=== PATIENT | male | born 1960 | race Caucasian/White ===

== ENCOUNTER 2017-03-19 11:59 | Emergency (ER) | payer OTHER ==
[~2017-03-19] VITALS: Ht 177.8 cm; Wt 91.0 kg
[~2017-03-19 11:59] MED LIST: ACYC-1 PO; ASPI81 PO; LISI10TA PO; PRED20 PO; PREV30CA36 PO
[2017-03-19 12:02] VITALS: BP 113/82; PULSE 96; RESP 16; TEMP 97.5; O2SAT 98
[2017-03-19] MEDS ORDERED: PREV30CA11 PO (12:07)
[2017-03-19] MEDS ORDERED: LISI10TA PO (12:07)
[2017-03-19] MEDS ORDERED: ASPI81CH7 CHEW (12:07)
[2017-03-19] MEDS ORDERED: ALLO100T PO (12:07)
[2017-03-19 12:18] LABS: BLOOD, URINE NEG (NEG); GLUCOSE,URINE NEG (NEG); KETONE, URINE NEG (NEG); NITRITE,URINE NEG (NEG); PH, URINE 5.5 (5.0-8.5)
[2017-03-19 12:25] LABS: METHOD OF COLLECTION CLEAN CATCH; URINE COLOR YELLOW (YELLW/STRAW)
[2017-03-19 12:26] LABS: COMMENT (UR) CULTURE INDICATED; COMMENT2 (UR) MUCOUS PRESENT; CULTURE IF INDICATED CULTURE INDICATED; SQUAMOUS EPITHELIAL CELL URINE 0-5 /hpf (0-5); WBC, URINE 0-2 /hpf (0-5)
--- NOTE | 2017-03-19 13:12 | PD ---
HPI Chief Complaint: Abdominal Pain Time Seen by Provider: 12:32 Travel History International Travel<30 days: No Contact w/Intl Traveler<30days: No Traveled to known affect area: No History of Present Illness HPI 56 year old male presenting with acute severe abdominal pain about 2 hours ago. He had watery diarrhea for the past 2 days. The patient took Imodium last night and has not had a BM since. Associated symptoms include nausea and subjective fever. He denies hematochezia, melena, vomiting, dysuria, and hematuria. He had diverticulitis 3 years ago and a laparoscopic inguinal hernia repair. No recent travel and no family with similar symptoms. Patient states now his abdominal pain is nearly completely resolved. Was offered pain medicine and declined. States he never had this type of thing happen to him before. PFSH Past Medical History Hx Anticoagulant Therapy: Yes (BABY ASA DAILY) Anemia: No Blood Disorders: No Cancer: No Cardiovascular Problems: Yes (HTN) High Cholesterol: Yes Diabetes: No (PRE) Diminished Hearing: No Diverticulitis: Yes GERD: Yes Glaucoma: No Gout: Yes Genitourinary: No Headaches: Yes Hepatitis: No Hiatal Hernia: No Hypertension: Yes Immune Disorder: No Inguinal Hernia: Yes (LEFT INGUINAL HERNIA) Medical other: Yes (reflux pneumonia several years ago) Psychiatric: No Respiratory: No Immunizations Current: Yes Seizures: Yes (ASSOCIATED WITH HEADACHES- LAST SEIZURE 2002) Thyroid Disease: No Tetanus Vaccination: Unknown Past Surgical History Abdominal Surgery: Yes (HERNIA REPAIR 04/2009) Pacemaker: No Other Surgery: Yes (HAND SURG X3 FOR "WEBBED FINGERS") Social History Alcohol Use: Yes (RARE) Tobacco Use: No Substance Use: No Allergies-Medications (Allergen,Severity, Reaction): Coded Allergies: No Known Allergies (Verified , 03/19/17) Reported Meds & Prescriptions Reported Meds & Active Scripts Active Bentyl (Dicyclomine HCl) 10 Mg Cap 10 Mg PO TID PRN Reported Lisinopril-Hctz 10-12.5 Mg Tab 1 Tab PO DAILY Prevacid (Lansoprazole) 30 Mg Capdr 30 Mg PO DAILY Allopurinol 100 Mg Tab 100 Mg PO DAILY Aspirin Children's (Aspirin) 81 Mg Chew 81 Mg CHEW DAILY Review of Systems Except as stated in HPI: all other systems reviewed are Neg General / Constitutional: Positive: Chills Cardiovascular: No: Chest Pain or Discomfort Respiratory: No: Cough, Shortness of Breath Gastrointestinal: Positive: Nausea, Diarrhea, Abdominal Pain, No: Vomiting, Hematemesis, Hematochezia, Constipation Genitourinary: No: Dysuria, Hematuria Physical Exam Narrative GENERAL: Well developed, well nourished SKIN: Warm and dry. HEAD: Atraumatic. Normocephalic. EYES: Pupils equal and round. No scleral icterus. No injection or drainage. ENT: No nasal bleeding or discharge. Mucous membranes pink and moist. NECK: Trachea midline. No JVD. CARDIOVASCULAR: Regular rate and rhythm. RESPIRATORY: No accessory muscle use. Clear to auscultation. Breath sounds equal bilaterally. GASTROINTESTINAL: Voluntary guarding only, abdomen is soft though., Minimally tender to palpation in epigastric and periumbilical regions. Nondistended. Hepatic and splenic margins not palpable. MUSCULOSKELETAL: Extremities without clubbing, cyanosis, or edema. No obvious deformities. NEUROLOGICAL: Awake and alert. No obvious cranial nerve deficits. Motor grossly within normal limits. Five out of 5 muscle strength in the arms and legs. Normal speech. PSYCHIATRIC: Appropriate mood and affect; insight and judgment normal. Data Data Last Documented VS Vital Signs Date Time Temp Pulse Resp B/P Pulse Ox O2 Delivery O2 Flow Rate FiO2 03/19/17 15:11 76 16 109/72 97 Room Air 03/19/17 12:02 97.5 Orders Urinalysis - C+S If Indicated (03/19/17 12:10) Urine Culture (03/19/17 12:14) Complete Blood Count With Diff (03/19/17 13:09) Comprehensive Metabolic Panel (03/19/17 13:09) Lactic Acid (03/19/17 13:09) Prothrombin Time / Inr (Pt) (03/19/17 13:09) Act Partial Throm Time (Ptt) (03/19/17 13:09) Iv Access Insert/Monitor (03/19/17 13:09) Ecg Monitoring (03/19/17 13:09) Oximetry (03/19/17 13:09) Sodium Chloride 0.9% Flush (Ns Flush) (03/19/17 13:15) Ct Abd/Pel W Iv Contrast(Rout) (03/19/17 ) Iohexol 350 Inj (Omnipaque 350 Inj) (7/23/17 14:30) Labs Laboratory Tests Test 03/19/17 03/19/17 12:14 13:15 Urine Collection Type CLEAN CATCH Urine Color YELLOW Urine Turbidity SLIGHT Urine pH 5.5 Urine Specific Kirkman 1.023 Urine Protein NEG mg/dL Urine Glucose (UA) NEG mg/dL Urine Ketones NEG mg/dL Urine Occult Blood NEG Urine Nitrite NEG Urine Bilirubin NEG Urine Leukocyte Esterase NEG Urine WBC 0-2 /hpf Urine Squamous Epithelial 0-5 /hpf Cells Urine Amorphous Sediment FEW Microscopic Urinalysis Comment CULTURE INDICATED Urine Collection Time 1214 White Blood Count 9.0 TH/MM3 Red Blood Count 5.45 MIL/MM3 Hemoglobin 15.3 GM/DL Hematocrit 45.9 % Mean Corpuscular Volume 84.1 FL Mean Corpuscular Hemoglobin 28.0 PG Mean Corpuscular Hemoglobin 33.3 % Concent Red Cell Distribution Width 12.4 % Platelet Count 225 TH/MM3 Mean Platelet Volume 9.4 FL Neutrophils (%) (Auto) 70.2 % Lymphocytes (%) (Auto) 18.6 % Monocytes (%) (Auto) 9.1 % Eosinophils (%) (Auto) 1.0 % Basophils (%) (Auto) 1.1 % Neutrophils # (Auto) 6.3 TH/MM3 Lymphocytes # (Auto) 1.7 TH/MM3 Monocytes # (Auto) 0.8 TH/MM3 Eosinophils # (Auto) 0.1 TH/MM3 Basophils # (Auto) 0.1 TH/MM3 CBC Comment DIFF FINAL Differential Comment Prothrombin Time 10.6 SEC Prothromb Time International 1.0 RATIO Ratio Activated Partial 25.4 SEC Thromboplast Time Sodium Level 140 MEQ/L Potassium Level 3.4 MEQ/L Chloride Level 104 MEQ/L Carbon Dioxide Level 25.9 MEQ/L Anion Gap 10 MEQ/L Blood Urea Nitrogen 12 MG/DL Creatinine 1.50 MG/DL Estimat Glomerular Filtration 48 ML/MIN Rate Random Glucose 97 MG/DL Lactic Acid Level 1.3 mmol/L Calcium Level 8.7 MG/DL Total Bilirubin 0.5 MG/DL Aspartate Amino Transf 18 U/L (AST/SGOT) Alanine Aminotransferase 24 U/L (ALT/SGPT) Alkaline Phosphatase 73 U/L Total Protein 7.6 GM/DL Albumin 3.6 GM/DL [facility] Medical Decision Making Medical Screen Exam Complete: Yes Emergency Medical Condition: Yes Differential Diagnosis Intussusception, volvulus, SBO, gastritis, gastroenteritis, pancreatitis, cholecystitis, Narrative Course Patient roomed in emergency department, states his pain was the most severe pain he was ever felt in his life. He seems fairly stoic and I think he is holding back at this time. His labs are reassuring (he does have an elevated creatinine to 1.5 which seems to be about his baseline) but will pursue a CAT scan of his abdomen. Last 24 hours Impressions Abdomen/Pelvis CT 03/19/17 0000 Signed Impressions: Service Date/Time: Sunday, March 19, 2017 14:17 - CONCLUSION: 1. Diverticulosis with probable spasm of the sigmoid colon and underlying mass is difficult to exclude. 2. The liver is fatty with numerous simple cysts within it and there are also simple cysts in the left kidney. 3. Benign-appearing cystic lesion in the inferior portion of the spleen may be a pseudocyst. The patient's older exam from 2009 is archived and not available for direct comparison. Jennifer Deluca MD Results were discussed with Dr. Deluca particularly the redevelop probable spasm of the sigmoid colon. He states this is common finding but excludes complete examination of the sigmoid colon on CAT scan. Discuss results with the patient including the cystic lesions and recommend follow-up with his primary care physician. At this time he is feeling well and still declines any pain medicine. Abdomen is completely benign at this time. Discussed symptomatic management home and returned ED criteria. Diagnosis Primary Impression: Abdominal cramping Patient Instructions: Gastroenteritis (DC), General Instructions Additional Instructions: Drink plenty of fluids, avoid immodium to let diarrhea run it's course. Stay bland on your diet. If you run fevers, pain gets worse, return to the ER. Med/Other Pt SpecificInfo: Prescription(s) given Scripts Dicyclomine (Bentyl)10 Mg Cap10 Mg PO TID PRN (ABDOMINAL CRAMPING) #20 CAP Ref 0 Prov:Fede Coker MD 03/19/17 Disposition: 01 DISCHARGE HOME Condition: Stable Fede Coker MD Mar 19, 2017 13:11
[2017-03-19] MEDS ORDERED: SODIUM CHLORIDE 0.9% FLUSH 10 ML FLUSH IV FLUSH PRN (13:15)
[2017-03-19 13:21] VITALS: O2SAT 97
[2017-03-19 13:28] LABS: AUTOMATED NEUTROPHIL # 6.3 TH/MM3 (1.8-7.7); BASOPHIL # 0.1 TH/MM3 (0-0.2); BASOPHIL % 1.1 % (0.0-2.0); EOSINOPHIL # 0.1 TH/MM3 (0-0.4); HEMATOCRIT 45.9 % (39.0-51.0); HEMO FLAGS DIFF FINAL; LYMPH % 18.6 % (9.0-44.0); LYMPHOCYTE # 1.7 TH/MM3 (1.0-4.8); MEAN CELL VOLUME 84.1 FL (80.0-100.0); MEAN CORPUSCULAR HGB CONC 33.3 % (32.0-36.0); MONO % 9.1 % (0.0-8.0); NEUT % 70.2 % (16.0-70.0); PLATELET COUNT 225 TH/MM3 (150-450); RED BLOOD COUNT 5.45 MIL/MM3 (4.50-5.90); RED CELL DISTRIBUTION WIDTH 12.4 % (11.6-17.2)
[2017-03-19 13:37] LABS: CHLORIDE 104 MEQ/L (98-107); POTASSIUM 3.4 MEQ/L (3.5-5.1); SODIUM (NA) 140 MEQ/L (136-145)
[2017-03-19 13:41] LABS: ANION GAP 10 MEQ/L (5-15); BICARBONATE 25.9 MEQ/L (21.0-32.0); BLOOD UREA NITROGEN 12 MG/DL (7-18)
[2017-03-19 13:44] LABS: ALT (GPT) 24 U/L (12-78); AST (GOT) 18 U/L (15-37); GLOMERULAR FILTRATION RATE 48 ML/MIN (>89)
[2017-03-19 13:46] LABS: TOTAL BILIRUBIN ADULT 0.5 MG/DL (0.2-1.0)
[2017-03-19 13:47] LABS: ALKALINE PHOSPHATASE 73 U/L (45-117)
[2017-03-19 13:51] LABS: APTT (PATIENT) 25.4 SEC (24.3-30.1); PROTHROMBIN TIME - PATIENT 10.6 SEC (9.8-11.6)
[2017-03-19] MEDS ORDERED: IOHEXOL 350 MG/ML 10 ML VIAL (for RAD DIAG) IV ONE (14:30)
--- NOTE | 2017-03-19 14:44 | RADRPT ---
EXAM DATE/TIME: 03/19/2017 14:17 [facility] COMPARISON: No previous studies available for comparison. INDICATIONS : Severe abdominal pain and diarrhea. IV CONTRAST: 85 cc Omnipaque 350 (iohexol) IV ORAL CONTRAST: No oral contrast ingested. RADIATION DOSE: 17.14 CTDIvol (mGy) MEDICAL HISTORY : Hypertension. Diverticulitis. Gastroesophageal reflux disease. SURGICAL HISTORY : Inguinal hernia repair. ENCOUNTER: Initial ACUITY: 1 day PAIN SCALE: 6/10 LOCATION: abdomen/pelvis TECHNIQUE: Volumetric scanning of the abdomen and pelvis was performed. Using automated exposure control and ad justment of the mA and/or kV according to patient size, radiation dose was kept as low as reasonably achievable to obtain optimal diagnostic quality images. DICOM format image data is available electro nically for review and comparison. FINDINGS: CT Abdomen: There are simple cysts in the liver which is also fatty the largest measures 9 mm. There is an approximate 1.5 cm benign cyst in the spleen with small cysts in the left kidney the largest me asures 1.7 cm in size. The right kidney appears intact. The pancreas, adrenals are unremarkable. Ther e is no evidence for any appreciable pathological adenopathy, free fluid, or bowel obstruction. CT pelvis: There is no evidence for mass, abscess formation, or any significant adenopathy within the pelvis. There are numerous diverticuli in the sigmoid colon with an area of spasm without definite s igns of diverticulitis. CONCLUSION: 1. Diverticulosis with probable spasm of the sigmoid colon and underlying mass is difficult to exclud e. 2. The liver is fatty with numerous simple cysts within it and there are also simple cysts in the lef t kidney. 3. Benign-appearing cystic lesion in the inferior portion of the spleen may be a pseudocyst. The del ent's older exam from 2009 is archived and not available for direct comparison. Jennifer Deluca MD on March 19, 2017 at 14:36 Board Certified Radiologist. This report was verified electronically.
[2017-03-19] MEDS ORDERED: DICY10 PO (14:59)
[2017-03-19 15:11] VITALS: BP 109/72; PULSE 76; RESP 16; O2SAT 97
== END 2017-03-19 15:14 | disposition home or self-care (01) ==
LOC: PHED 11:59
DX: R10.9 Unspecified abdominal pain (principal); R19.7 Diarrhea, unspecified; R11.0 Nausea; K57.30 Diverticulosis of large intestine without perforation or abscess without bleeding; K76.89 Other specified diseases of liver; N28.1 Cyst of kidney, acquired; D73.4 Cyst of spleen; I10 Essential (primary) hypertension; R73.03 Prediabetes; E78.00 Pure hypercholesterolemia, unspecified; Z79.82 Long term (current) use of aspirin; Z86.79 Personal history of other diseases of the circulatory system; Z87.19 Personal history of other diseases of the digestive system; Z87.39 Personal history of other diseases of the musculoskeletal system and connective tissue; Z86.69 Personal history of other diseases of the nervous system and sense organs
CPT/HCPCS: 74177; 80053; 81001; 83605; 85025; 85610; 85730; 87086; 99285; Q9967